=== PATIENT | male | born 1985 | race Caucasian/White ===

== ENCOUNTER → 2022-04-13 | Outpatient (REF) | payer OTHER | LOC: M SMT 13:40 | PROVIDERS: ATTEND Urology | DX: Z30.2 Encounter for sterilization (principal) ==

== ENCOUNTER → 2022-06-21 | Outpatient (REF) | payer OTHER ==
[2022-06-21 15:02] LABS: SEMEN APPEARANCE OPAQUE (OPAQUE); SEMEN VISCOSITY LIQUID (LIQUID); SEMEN pH 8.5 (7.0-8.0)
[2022-06-21 15:04] LABS: WBC CONCENTRATION <=1 M/ml (<=1 M/ml)
== END ==
LOC: M SMT 13:23
PROVIDERS: ATTEND Urology
DX: Z30.2 Encounter for sterilization (principal)